=== PATIENT | male | born 1985 | race Caucasian/White ===

== ENCOUNTER 2020-08-07 20:35 | Inpatient (IN) | payer MEDICAID ==
[~2020-08-07] VITALS: Ht 157.5 cm; Wt 107.5 kg
[2020-08-07] MEDS ORDERED: ONDANSETRON HCL/PF 4 MG/2 ML VIAL ONE (20:52)
[2020-08-07] MEDS ORDERED: MORPHINE SULFATE INJ 4 MG/ML DISP.SYRIN ONE (20:53)
[2020-08-07] MEDS ORDERED: IV NS 0.9% 1,000 ML BAG IV ONE (21:00)
[2020-08-07] MEDS ORDERED: MORPHINE SULFATE INJ 2 MG/ML DISP.SYRIN IV ONE (21:00)
[2020-08-07] MEDS ORDERED: ONDANSETRON HCL/PF 4 MG/2 ML VIAL IVP ONE (21:00)
--- NOTE | 2020-08-07 21:00 | NUR ---
BLOOD DRAWN AND SENT TO THE LAB.
[2020-08-07 21:10] LABS: BILIRUBIN,URINE Negative (NEGATIVE); COLOR,URINE YELLOW (YELLOW); LEUKOCYTE ESTERASE ,URINE Negative (NEGATIVE); NITRITE, URINE Negative (NEGATIVE); PH,URINE 8.5 (5.0-8.0); PROTEIN,URINE 30 mg/dl (NEGATIVE); UGLUCOSE Negative (NEGATIVE); UROBILINOGEN,URINE 0.2 EU/dL (0.2)
[2020-08-07 21:12] LABS: BASOPHILS % (AUTO) 0.2 % (0.0-2.0); EOSINOPHILS % (AUTO) 0.1 % (0.0-6.0); HEMATOCRIT 44 % (39-51); HEMOGLOBIN 14.9 g/dL (13.5-17.5); LYMPHOCYTES # (AUTO) 0.9 /CMM (0.8-4.8); LYMPHOCYTES % (AUTO) 7.2 % (20.0-44.0); MEAN CORPUSCULAR HGB CONC 34 g/dl (31.0-36.0); MEAN CORPUSCULAR VOLUME 86 fL (80-96); MONOCYTES # (AUTO) 0.5 /CMM (0.1-1.30); MONOCYTES % (AUTO) 4.4 % (2.0-12.0); NEUTROPHILS # (AUTO) 10.8 /CMM (1.8-8.9); NEUTROPHILS % (AUTO) 88.1 % (43.0-81.0); PLATELET COUNT (AUTO) 205 /CMM (150-450); RED BLOOD CELL COUNT(AUTO) 5.08 MIL/uL (4.5-6.0); WHITE BLOOD COUNT (AUTO) 12.3 K/uL (4.3-11.0)
--- NOTE | 2020-08-07 21:22 | NUR ---
Patient last BM was this morning.
--- NOTE | 2020-08-07 21:22 | NUR ---
PATIENT CAME TO THE ER BED 9 C/O LOWER ABDOMINAL PAIN RADITATING TO THE EPIGASTRIC FOR 2x DAYS. PATIENT IS AAOX4. NO SOB .BREATHING EVENLY AND UNLABORED ON ROOM AIR. CONNECTED TO THE MONITOR.
[2020-08-07 21:24] LABS: BACTERIA,URINE Rare /HPF (None Seen); RBC,URINE 0-2 /HPF (0-2); SQUAMOUS EPITHELIAL CELL,UR 0-2 /HPF (None Seen); WBC,URINE 0-2 /HPF (0-3)
[2020-08-07 21:27] LABS: ALBUMIN 3.7 g/dL (3.4-5.0); BILIRUBIN,DIRECT 0.1 mg/dL (0.0-0.2); BILIRUBIN,TOTAL 0.6 mg/dL (0.2-1.0); CALCIUM, SERUM 8.6 mg/dL (8.5-10.1); CREATININE 0.8 mg/dL (0.6-1.3); POTASSIUM 3.5 mmol/L (3.5-5.1); TOTAL PROTEIN, SERUM 7.6 g/dL (6.4-8.2)
--- NOTE | 2020-08-07 22:09 | NUR ---
FABBY CUTLER NP SPEAKING WITH DR. CORRAL (SERVICE WRITER ADVISOR SURGERY)
[2020-08-07] MEDS ORDERED: PIPERACILLIN /TAZOBACTAM 3.375 G VIAL IV ONE (22:16)
--- NOTE | 2020-08-07 22:25 | NUR ---
ALEXID SWABBED, SENT TO LAB.
[2020-08-07] MEDS ORDERED: PIPERACILLIN /TAZOBACTAM 3.375 G in IV D5W 50 ML IV ONE (22:30)
--- NOTE | 2020-08-07 22:45 | NUR ---
BED ASSIGNMENT 315-2
--- NOTE | 2020-08-07 22:47 | NUR ---
REPORT GIVEN TO CALEB SNIDER FOR DENISE.
--- NOTE | 2020-08-07 23:05 | NUR ---
REPORT GIVEN TO CALEB SNIDER FOR DENISE.
--- NOTE | 2020-08-07 23:07 | NUR ---
CALLED LAB REGARDING COVID SWAB, WILL RESULT IN 5 MINS.
[2020-08-07] MEDS ORDERED: ZOLPIDEM TARTRATE 5 MG TABLET PO PRN (23:30)
[2020-08-07] MEDS ORDERED: Z GUARD REMEDY 2 OZ OINT TP PRN (23:30)
[2020-08-07] MEDS ORDERED: ACETAMINOPHEN 325 MG TABLET PO PRN (23:30)
[2020-08-07] MEDS ORDERED: MORPHINE SULFATE INJ 2 MG/ML DISP.SYRIN IV PRN (23:30)
[2020-08-07] MEDS ORDERED: MAG HYDROX/AL HYDROX/SIMETH 30 ML UDC PO PRN (23:30)
[2020-08-07] MEDS ORDERED: HYDROCODONE/APAP 5/325MG TABLET PO PRN (23:30)
[2020-08-07] MEDS ORDERED: MAGNESIUM HYDROXIDE 30 ML UDC PO PRN (23:30)
[2020-08-07] MEDS: IV NS 0.9% 1,000 ML IV ONE (23:30)
[2020-08-07] MEDS ORDERED: ONDANSETRON HCL/PF 4 MG/2 ML VIAL IVP PRN (23:30)
--- NOTE | 2020-08-08 00:30 | NUR ---
MS RN NOTE: RECEIVED PATIENT FROM ER, NO ACUTE DISTRESS NOTED. BREATHING EVEN AND UNLABORED, NO SOB NOTED. IV TO RAC IN PLACE. PATIENT TO HAVE SURGERY LATER TODAY, INSTRUCTED THAT HE CAN NOT EAT OR DRINK SINCE SCHEDULED. CONSENTS SIGNED AND IN CHART. ORIENTED PATIENT TO ROOM AND USE OF CALL LIGHT. BED LOCKED AND IN LOWEST POSITION, CALL LIGHT IN REACH. WILL CONTINUE TO MONITOR THROUGHOUT SHIFT.
[2020-08-08] MEDS: IV NS 0.9% 1,000 ML IV ONE (03:00)
[2020-08-08] MEDS ORDERED: PIPERACILLIN /TAZOBACTAM 3.375 G VIAL IV ONE (05:20)
[2020-08-08] MEDS ORDERED: PIPERACILLIN /TAZOBACTAM 3.375 G in IV D5W 50 ML IV SCH ×2 (06:00→12:00)
--- NOTE | 2020-08-08 06:15 | NUR ---
MS RN NOTE: PATIENT RESTING IN BED, NO ACUTE DISTRESS NOTED. BREATHING EVEN AND UNLABORED, NO SOB NOTED. IV TO RAC IN PLACE, INFUSING NS AT 75ML/HR. PATIENT TO HAVE SURGERY LATER TODAY, NPO SINCE MIDNIGHT, CONSENTS SIGNED AND IN CHART. BED LOCKED AND IN LOWEST POSITION, CALL LIGHT IN REACH. WILL ENDORSE TO DAY NURSE TO CONTINUE WITH PLAN OF CARE.
[2020-08-08 06:52] LABS: BASOPHILS % (AUTO) 0.2 % (0.0-2.0); EOSINOPHILS % (AUTO) 0.3 % (0.0-6.0); HEMATOCRIT 44 % (39-51); HEMOGLOBIN 15.2 g/dL (13.5-17.5); LYMPHOCYTES % (AUTO) 9.9 % (20.0-44.0); MEAN CORPUSCULAR HGB CONC 34 g/dl (31.0-36.0); MEAN CORPUSCULAR VOLUME 86 fL (80-96); MONOCYTES # (AUTO) 0.6 /CMM (0.1-1.30); MONOCYTES % (AUTO) 5.4 % (2.0-12.0); NEUTROPHILS # (AUTO) 8.9 /CMM (1.8-8.9); NEUTROPHILS % (AUTO) 84.2 % (43.0-81.0); PLATELET COUNT (AUTO) 206 /CMM (150-450); RED BLOOD CELL COUNT(AUTO) 5.11 MIL/uL (4.5-6.0); WHITE BLOOD COUNT (AUTO) 10.5 K/uL (4.3-11.0)
--- NOTE | 2020-08-08 07:15 | NUR ---
MS RN OPENING NOTES RECEIVED PT IN BED. A/O X 4. NO SOB NOTED. IN S/S OF RESPIRATORY DISTRESS. ON NPO. IV SITE R AC #18, NS RUNNING @75 ML/HR. SAFETY MEASURES MAINTAINED. BED IN LOWEST POSITION, BRAKES LOCKED. SIDE RAILS UP X2. CALL LIGHT WITHIN REACH. WILL CONTINUE PLAN OF CARE.
[2020-08-08 07:18] LABS: CALCIUM, SERUM 8.7 mg/dL (8.5-10.1); CREATININE 0.7 mg/dL (0.6-1.3); MAGNESIUM 2.3 mg/dL (1.8-2.4); PHOSPHORUS 3.9 mg/dL (2.5-4.9); POTASSIUM 3.8 mmol/L (3.5-5.1)
[2020-08-08 08:00] VITALS: BP 100/58
[2020-08-08] MEDS: PIPERACILLIN /TAZOBACTAM 3.375 G in IV D5W 100 ML IV SCH ×2 (11:47→20:26)
[2020-08-08] MEDS ORDERED: BUPIVACAINE MPF W/EPI 0.25% 30 ML VIAL ONE (13:59)
[2020-08-08] MEDS ORDERED: ANESTHESIA TRAY IN PYXIS 1 EA TRAY MC ONE (13:59)
[2020-08-08] MEDS ORDERED: LIDOCAINE 1% INJ 50 ML MDV IJ ONE (13:59)
--- NOTE | 2020-08-08 14:12 | NUR ---
MS RN NOTES PATIENT WAS BROUGHT DOWN TO OR FOR LAPAROSCOPIC APPENDECTOMY.
[2020-08-08] MEDS ORDERED: ROCURONIUM BROMIDE 50 MG/5 ML ONE (14:47)
[2020-08-08] MEDS ORDERED: MIDAZOLAM HCL 2 MG/2ML VIAL ONE (14:47)
[2020-08-08] MEDS ORDERED: FENTANYL PF 100MCG/2ML AMPUL ONE (14:47)
[2020-08-08] MEDS ORDERED: SUCCINYLCHOLINE CHLORIDE 20 MG/ML VIAL ONE (14:47)
[2020-08-08] MEDS ORDERED: BACITRACIN ZINC OINT PACKET 1 EA PACKET TP ONE (16:01)
[2020-08-08] MEDS ORDERED: IV LR 1000 ML 1,000 ML IV PRN (16:30)
[2020-08-08] MEDS ORDERED: HYDROCODONE/APAP 10/325MG TABLET PO PRN (16:30)
--- NOTE | 2020-08-08 17:00 | NUR ---
MS RN NOTES PATIENT WAS BROUGHT BACK TO HIS ROOM FROM THE OR. POST VS BP 117/67 [place] 78 RR 18 TEMP 98.5 SAO2 95%. NC 2LPM.
--- NOTE | 2020-08-08 19:27 | NUR ---
MS RN CLOSING NOTES PT RESTING IN BED COMFORTABLY. A/O X 4. NO SOB NOTED. IN S/S OF RESPIRATORY DISTRESS. NC 2LPM. IV SITE R AC #18. L AC LR RUNNING @125 ML/HR. SAFETY MEASURES MAINTAINED. BED IN LOWEST POSITION, BRAKES LOCKED. SIDE RAILS UP X2. CALL LIGHT WITHIN REACH. WILL ENDORSE TO ASE MASTER MECHANIC FOR DENISE.
--- NOTE | 2020-08-08 19:30 | NUR ---
MS RN NOTE: PATIENT RESTING IN BED, NO ACUTE DISTRESS NOTED. BREATHING EVEN AND UNLABORED, NO SOB NOTED. IV TO LAC IN PLACE, INFUSING LR AT 125ML/HR. BED LOCKED AND IN LOWEST POSITION, CALL LIGHT IN REACH. WILL CONTINUE TO MONITOR THROUGHOUT SHIFT.
[2020-08-08 20:00] VITALS: BP 102/59
--- NOTE | 2020-08-08 20:30 | NUR ---
MS RN NOTE: PATIENT COMPLAINS OF ABDOMINAL PAIN 02/16, NORCO 10/325MG 1TAB ORAL GIVEN PER MD ORDER. WILL CONTINUE TO MONITOR THROUGHOUT SHIFT.
[2020-08-09] MEDS: PIPERACILLIN /TAZOBACTAM 3.375 G in IV D5W 100 ML IV SCH (04:54)
--- NOTE | 2020-08-09 06:05 | NUR ---
MS RN NOTE: PATIENT RESTING IN BED, NO ACUTE DISTRESS NOTED. BREATHING EVEN AND UNLABORED, NO SOB NOTED. IV TO RAC AND LAC IN PLACE, INFUSING LR AT 125ML/HR. [address] IN [address], NO BLEEDING NOTED. BED LOCKED AND IN LOWEST POSITION, CALL LIGHT IN REACH. WILL ENDORSE TO DAY NURSE TO CONTINUE WITH PLAN OF CARE.
[2020-08-09 06:29] LABS: BASOPHILS % (AUTO) 0.2 % (0.0-2.0); EOSINOPHILS % (AUTO) 0.1 % (0.0-6.0); HEMATOCRIT 41 % (39-51); HEMOGLOBIN 14.3 g/dL (13.5-17.5); LYMPHOCYTES # (AUTO) 0.9 /CMM (0.8-4.8); LYMPHOCYTES % (AUTO) 9.5 % (20.0-44.0); MEAN CORPUSCULAR HGB CONC 35 g/dl (31.0-36.0); MEAN CORPUSCULAR VOLUME 87 fL (80-96); MONOCYTES # (AUTO) 0.5 /CMM (0.1-1.30); MONOCYTES % (AUTO) 5.1 % (2.0-12.0); NEUTROPHILS # (AUTO) 7.6 /CMM (1.8-8.9); NEUTROPHILS % (AUTO) 85.1 % (43.0-81.0); PLATELET COUNT (AUTO) 194 /CMM (150-450); RED BLOOD CELL COUNT(AUTO) 4.76 MIL/uL (4.5-6.0); WHITE BLOOD COUNT (AUTO) 8.9 K/uL (4.3-11.0)
[2020-08-09 06:54] LABS: CALCIUM, SERUM 8.7 mg/dL (8.5-10.1); CREATININE 0.9 mg/dL (0.6-1.3); MAGNESIUM 2.5 mg/dL (1.8-2.4); PHOSPHORUS 4.5 mg/dL (2.5-4.9)
[2020-08-09 08:00] VITALS: BP 107/71
[2020-08-09] MEDS ORDERED: HYDR-3980 PO (09:59)
[2020-08-09] MEDS ORDERED: ONDA4TAB5 PO (09:59)
[2020-08-09] MEDS ORDERED: AMOX-430 PO (09:59)
--- NOTE | 2020-08-09 12:28 | NUR ---
MS RN NOTES PATIENT RECEIVED IN BED. A/O X 4. NO SOB NOTED. IN S/S OF RESPIRATORY DISTRESS. NC 2LPM. IV SITE R AC #18. L AC LR RUNNING @125 ML/HR. PATIENT DISCHARGED @1100. HEALTH TEACHING DONE AND VERBALIZED UNDERSTANDING. REMOVED ID BAND AND IV ACCESS.
== END 2020-08-09 11:00 | disposition home or self-care (01) | DRG 234 ==
LOC: ER 20:39 → MED 22:49
PROVIDERS: ADMIT Family Medicine; ATTEND Nurse Practitioner Acute Care
PROC: 0DTJ4ZZ Resection of Appendix, Percutaneous Endoscopic Approach (ICD-10-PCS; principal; 2020-08-08)
DX: K35.80 Unspecified acute appendicitis (principal); E66.01 Morbid (severe) obesity due to excess calories; Z68.41 Body mass index [BMI] 40.0-44.9, adult; R73.9 Hyperglycemia, unspecified; R74.01 Elevation of levels of liver transaminase levels
CPT/HCPCS: 36415; 80048-TC; 80061-TC; 80076-TC; 81001; 83690-TC; 83735-TC; 84100-TC; 85025-TC; 85610-TC; 86850-TC; 87081-TC; G0378; J0330; J1100; J1885; J2250; J2270; J2405; J2543; J2704; J3010; J3490; J7030; J7060; J7120